=== PATIENT | female | born 1965 | race Caucasian/White ===

== ENCOUNTER 2017-03-15 12:22 | Emergency (ER) | payer OTHER ==
[~2017-03-15] VITALS: Ht 167.6 cm; Wt 108.5 kg
[2017-03-15 12:25] VITALS: TEMP 36.5; Ht 167.6 cm; Wt 108.5 kg
--- NOTE | 2017-03-15 14:30 | EMERGENCY ROOM VISIT NOTE ---
History First contact with patient: 14:01 Chief Complaint: CARDIAC ASSESSMENT Stated Complaint: CHEST PAINS YESTERDAY, DARK STOOLS Nursing Triage Summary: Pt states she has epigastric pain that comes and goes for the past two days with nausea. no vomiting. Pt states she went to [facility] today and was directed to the ER. History of Present Illness The patient is a 51 year old female who presents to the Emergency Room with complaints of chest pain yesterday evening at 7pm. The pain was substernal, pressure-like, with numbness and tingling in the right arm, 8/10 discomfort, and some radiation to the lower back. The patient went to sleep immediately after the pain began and when she woke up this morning the pain had resolved. The patient also states that she has been having melena x 1 week. The patient has chronic lower abdominal pain and cramping that have been ongoing for year. She had a cholecystectomy with Dr. Tarango in [place] but states that her symptoms have continued since. She denies any fevers or chills but has been having diaphoresis that is normal for her. She has no chest pain today. Patient is a current smoker, smoking 1/2 ppd. Review of Systems See HPI for pertinent positives and negatives. A total of ten systems were reviewed and were otherwise negative. Social History Smoking Status: Current Every Day Smoker Current/Historical Medications Scheduled Bupropion Hcl (Bupropion Hcl Xl), 1 TAB PO QAM Clonazepam (Klonopin), 1 MG PO BID Montelukast Sodium (Singulair), 1 TAB PO DAILY Omeprazole (Prilosec), 20 MG PO DAILY Physical Exam Vital Signs Date Time Temp Pulse Resp B/P (MAP) Pulse Ox O2 Delivery O2 Flow Rate FiO2 03/15/17 15:56 80 18 121/80 99 Room Air 03/15/17 14:39 85 18 119/89 100 Room Air 03/15/17 12:25 36.5 89 18 128/85 98 Room Air Physical Exam GENERAL: Awake, alert, well-appearing, in no distress, mildly diaphoretic HENT: Normocephalic, atraumatic. Oropharynx unremarkable. EYES: Normal conjunctiva. Sclera non-icteric. NECK: Supple. No nuchal rigidity. RESPIRATORY: Clear to auscultation. CARDIAC: Regular rate, normal rhythm. Extremities warm and well perfused. Pulses equal. ABDOMEN: Soft, non-distended. No tenderness to palpation. RECTAL: No visible fissures or external hemorrhoids. Stool appears brown with no visible blood. MUSCULOSKELETAL: Chest examination reveals tenderness of mid-sternum. The back is symmetrical on inspection without obvious abnormality. LOWER EXTREMITIES: Calves are equal size bilaterally and non-tender. No edema. No discoloration. NEURO: Normal sensorium. No sensory or motor deficits noted. SKIN: No rash or jaundice noted. Medical Decision & Procedures Laboratory Results 03/15/17 14:23 Red Blood Count 5.26, Mean Corpuscular Volume 86.3, Mean Corpuscular Hemoglobin 29.5, Mean Corpuscular Hemoglobin Concent 34.1, Mean Platelet Volume 10.1, Neutrophils (%) (Auto) 55.7, Lymphocytes (%) (Auto) 36.9, Monocytes (%) (Auto) 4.4, Eosinophils (%) (Auto) 2.0, Basophils (%) (Auto) 0.7, Neutrophils # (Auto) 4.95, Lymphocytes # (Auto) 3.28, Monocytes # (Auto) 0.39, Eosinophils # (Auto) 0.18, Basophils # (Auto) 0.06 03/15/17 14:23 Test 03/15/17 14:23 White Blood Count 8.89 K/uL (4.8-10.8) Red Blood Count 5.26 M/uL (4.2-5.4) Hemoglobin 15.5 g/dL (12.0-16.0) Hematocrit 45.4 % (37-47) Mean Corpuscular Volume 86.3 fL (80-100) Mean Corpuscular Hemoglobin 29.5 pg (25-34) Mean Corpuscular Hemoglobin Concent 34.1 g/dl (32-36) Platelet Count 271 K/uL (130-400) Mean Platelet Volume 10.1 fL (7.4-10.4) Neutrophils (%) (Auto) 55.7 % Lymphocytes (%) (Auto) 36.9 % Monocytes (%) (Auto) 4.4 % Eosinophils (%) (Auto) 2.0 % Basophils (%) (Auto) 0.7 % Neutrophils # (Auto) 4.95 K/uL (1.4-6.5) Lymphocytes # (Auto) 3.28 K/uL (1.2-3.4) Monocytes # (Auto) 0.39 K/uL (0.11-0.59) Eosinophils # (Auto) 0.18 K/uL (0-0.5) Basophils # (Auto) 0.06 K/uL (0-0.2) RDW Standard Deviation 43.1 fL (36.4-46.3) RDW Coefficient of Variation 13.8 % (11.5-14.5) Immature Granulocyte % (Auto) 0.3 % Immature Granulocyte # (Auto) 0.03 K/uL (0.00-0.02) Anion Gap 10.0 mmol/L (3-11) Est Creatinine Clear Calc Drug Dose 59.3 ml/min Estimated GFR () 50.3 Estimated GFR (Non- 43.4 BUN/Creatinine Ratio 6.5 (10-20) Calcium Level 10.0 mg/dl (8.5-10.1) Total Bilirubin 0.7 mg/dl (0.2-1) Direct Bilirubin 0.2 mg/dl (0-0.2) Aspartate Amino Transf (AST/SGOT) 64 U/L (15-37) Alanine Aminotransferase (ALT/SGPT) 81 U/L (12-78) Alkaline Phosphatase 93 U/L (45-117) Troponin I < 0.015 ng/ml (0-0.045) Total Protein 7.9 gm/dl (6.4-8.2) Albumin 4.2 gm/dl (3.4-5.0) Lipase 54 U/L (73-393) ED Course Patient is a 51 year old female that presents with a 1 day history of chest pain 1400: Patient examined and labs reviewed - EKG: NSR, Rate 79 bpm, No ST changes, No t wave abnormalities - Physical Exam: Mild midsternal tenderness - Labs Ordered: CBC, BMP, Lipase, LFTs - Imaging: Chest X-Ray - Stool Hemoccult negative Medical Decision Patient is a 51 year old female that presents with a 1 day history of chest pain Etiologies such as cardiac ischemia, aortic dissection, pulmonary embolism, pneumonia, pneumothorax, musculoskeletal, infections, gastrointestinal, as well as others were entertained. In the ED the patient denied any chest pain but stated she was having dark stools, and due to her recent history of cardiac catheterization last year the patient was thoroughly worked up for cardiac chest pain. Her EKG, Troponin, and CXR were non-concerning for cardiac ischemia. The stool hemoccult on rectal examination was negative. The CBC and BMP were non-contributory. Due to the patient currently being asymptomatic and no significant findings on laboratory investigation the patient will be discharged home with instruction to follow up with their primary care provider. Impression Primary Impression: Chest pain Departure Information Dispostion Home / Self-Care Condition GOOD Referrals Marcio Nagel D.O. (PCP) Patient Instructions My [facility] Additional Instructions CHEST PAIN INSTRUCTIONS: Ibuprofen(Motrin, Advil) may be used for fever or pain. Use 600mg every six hours as needed. Take with food. Avoid using more than 2400mg in a 24 hour period. Do not use 2400mg per day for more than three consecutive days without physician direction. Prolonged inappropriate use can lead to stomach upset or ulcers. (AND/OR) Acetaminophen(Tylenol) may be used for fever or pain. Use 1000mg every six hours as needed. Avoid using more than 4000mg in a 24 hour period. Rest and drink plenty of fluids as tolerated. Continue current medications. Avoid strenuous activities and anything that worsens your pain. Resume normal activities once your symptoms resolve. Return to the ER immediately for worsening or persistent chest pain, abdominal pain, vomiting, fevers, chest pains, difficulty breathing, worsening of your condition, or as needed. Follow up with your primary physician in 2-3 days for a recheck of your current condition. Resident Tracking Resident Involvement: Resident Care Provided Care Provided: Adult ED Problem Qualifiers Primary Impression: Chest pain Chest pain type: other chest pain Qualified Codes: R07.89 - Other chest pain
--- NOTE | 2017-03-15 14:51 | DIAGNOSTIC IMAGING REPORT ---
CHEST ONE VIEW PORTABLE CLINICAL HISTORY: Chest pain. COMPARISON STUDY: No previous studies for comparison. FINDINGS: Lung volumes are normal. No pneumothorax or pleural effusion is present. There is no evidence of pulmonary edema. No consolidation is identified to suggest pneumonia. Cardiomediastinal silhouette is normal. Linear left lower lung opacity suggests atelectasis. IMPRESSION: No acute cardiopulmonary findings. Electronically signed by: Jair Adams M.D. 03/15/2017 2:50 PM Dictated Date/Time: 03/15/2017 2:49 PM
[2017-03-15 15:11] LABS: BASO % 0.7 %; BASO ABS # 0.06 K/uL (0-0.2); COMPLETE YES; HEMATOCRIT 45.4 % (37-47); IG% 0.3 %; LYMPH % 36.9 %; LYMPH ABS # 3.28 K/uL (1.2-3.4); MEAN CELL VOLUME 86.3 fL (80-100); MEAN CORPUSCULAR HEMOGLOBIN 29.5 pg (25-34); MEAN CORPUSCULAR HGB CONC 34.1 g/dl (32-36); MEAN PLATELET VOLUME 10.1 fL (7.4-10.4); MONO % 4.4 %; NEUT % 55.7 %; PLATELET COUNT 271 K/uL (130-400); RED BLOOD COUNT 5.26 M/uL (4.2-5.4); WHITE BLOOD COUNT 8.89 K/uL (4.8-10.8)
[2017-03-15 15:34] LABS: ALT/SGPT 81 U/L (12-78); BLOOD UREA NITROGEN 9 mg/dl (7-18); BUN/CREATININE RATIO 6.5 (10-20); CARBON DIOXIDE 24 mmol/L (21-32); CHLORIDE 103 mmol/L (98-107); GLUCOSE 93 mg/dl (70-99); POTASSIUM 4.5 mmol/L (3.5-5.1); SODIUM 137 mmol/L (136-145)
[2017-03-15] MEDS ORDERED: CLON1TAB3 PO (15:34)
[2017-03-15] MEDS ORDERED: BUPR300T43 PO (15:34)
[2017-03-15] MEDS ORDERED: MONT1TAB3 PO (15:34)
[2017-03-15] MEDS ORDERED: PRLSR20 PO (15:34)
[2017-03-15 15:39] LABS: ALKALINE PHOSPHATASE 93 U/L (45-117); AST/SGOT 64 U/L (15-37)
[2017-03-15 15:56] VITALS: BP 121/80; PULSE 80; O2SAT 99
--- NOTE | 2017-03-15 16:33 | EMERGENCY ROOM VISIT NOTE ---
ED Visit Note First contact with patient: 14:01 I have personally evaluated this patient examined her and reviewed the pertinent labs and data. I have discussed the case with the resident physician Dr. Bal and agree with the plan. Please refer to the PA note This patient had an episode of chest pain last evening around 6 PM. She's had none since then. She has chronic problems with her stomach in the epigastric. This was a little higher. She tells me she had a cath done in [place] about a year ago and says it was normal. Despite having pain all most 18 hours ago her troponin and CK-MB are normal this would make cardiac disease unlikely. Chest x -ray was unremarkable. EKG does not suggest acute coronary syndrome or arrhythmia. She has of some chronic GI issues and could be related to this. She desires to go home and think this is reasonable close follow-up with her doctor. I encouraged her to follow up with her regular doctor return if she has worsening symptoms, and testing pain, any new problems concerns. She is happy the plan and discharged to home.
== END 2017-03-15 16:38 | disposition home or self-care (01) ==
LOC: C.EDB 12:24
DX: R07.89 Other chest pain (principal); G89.29 Other chronic pain; R10.9 Unspecified abdominal pain; Z90.49 Acquired absence of other specified parts of digestive tract; F17.210 Nicotine dependence, cigarettes, uncomplicated; Z79.899 Other long term (current) drug therapy